=== PATIENT | male | born 1940 | race Asian ===

== ENCOUNTER 2019-02-20 01:46 | Emergency (ER) | payer SELFPAY ==
[~2019-02-20] VITALS: Ht 154.9 cm; Wt 53.7 kg
--- NOTE | 2019-02-20 02:05 | NUR ---
assesement made. ERP at bedside.
--- NOTE | 2019-02-20 02:24 | NUR ---
vu placed with slight difficulty due to patient's Hx of prostate enlargement. obtained 500 cc output and still draining.
[2019-02-20 02:32] LABS: MICROSCOPIC AUTO
[2019-02-20 02:38] LABS: CULTURE INDICATED? NO
--- NOTE | 2019-02-20 03:01 | NUR ---
chart up for recheck
--- NOTE | 2019-02-20 03:46 | NUR ---
leg bag provided. re-evaluation done. patient discharged with prescription and instruction. verbalized understanding.
[2019-02-20 03:47] VITALS: BP 177/73
== END 2019-02-20 03:49 | disposition home or self-care (01) ==
LOC: ED 03:29
DX: N40.1 Benign prostatic hyperplasia with lower urinary tract symptoms (principal); R33.8 Other retention of urine; R10.30 Lower abdominal pain, unspecified
CPT/HCPCS: 51702; 81001; 99284